=== PATIENT | male | born 1990 | race African-American/Black ===

== ENCOUNTER 2017-07-15 09:21 | Emergency (ER) | payer OTHER ==
[~2017-07-15] VITALS: Ht 165.1 cm; Wt 63.5 kg
[2017-07-15 09:25] VITALS: BP 127/79
[2017-07-15] MEDS ORDERED: FLEXERIL PO (09:41)
[2017-07-15] MEDS ORDERED: TRAMADOL 50 MG50 MG PO (09:41)
== END 2017-07-15 10:07 | disposition home or self-care (01) ==
LOC: ER 09:21
DX: S13.4XXA Sprain of ligaments of cervical spine, initial encounter (principal); S00.83XA Contusion of other part of head, initial encounter; V89.2XXA Person injured in unspecified motor-vehicle accident, traffic, initial encounter; Y93.89 Activity, other specified; Y92.89 Other specified places as the place of occurrence of the external cause; Y99.8 Other external cause status

== ENCOUNTER 2019-01-19 14:23 | Emergency (ER) | payer OTHER ==
[~2019-01-19] VITALS: Ht 165.1 cm; Wt 63.5 kg
[~2019-01-19 14:23] MED LIST: FLEXERIL PO; TRAMADOL 50 MG50 MG PO
[2019-01-19 16:10] LABS: URINE BILIRUBIN NEGATIVE (Negative); URINE BLOOD NEGATIVE (Negative); URINE CLARITY CLEAR; URINE COLOR YELLOW; URINE GLUCOSE-RANDOM* NEGATIVE (Negative); URINE KETONES NEGATIVE (Negative); URINE LEUKOCYTES-REFLEX NEGATIVE (Negative); URINE NITRITE-REFLEX NEGATIVE (Negative); URINE PROTEIN (DIPSTICK) NEGATIVE (Negative); URINE UROBILINOGEN 0.2 E.U./dl (0.2-1.0)
[2019-01-19 17:56] VITALS: BP 126/85
== END 2019-01-19 17:55 | disposition home or self-care (01) ==
LOC: ER 14:23
PROVIDERS: Emergency Medicine
DX: N34.2 Other urethritis (principal); Z87.440 Personal history of urinary (tract) infections

== ENCOUNTER 2019-05-20 16:00 | Emergency (ER) | payer OTHER ==
[~2019-05-20] VITALS: Ht 165.1 cm; Wt 65.8 kg
[2019-05-20 17:30] VITALS: BP 94/74
== END 2019-05-20 17:30 | disposition home or self-care (01) ==
LOC: ER 16:00
DX: R06.00 Dyspnea, unspecified (principal); R07.89 Other chest pain; Z87.440 Personal history of urinary (tract) infections